=== PATIENT | female | born 1980 | race Caucasian/White ===

== ENCOUNTER 2017-12-04 15:12 | Emergency (ER) | payer MEDICAID ==
[2017-12-04] MEDS: DIPHENHYDRAMINE 50 MG INJ IM (18:38)
[2017-12-04] MEDS: KETOROLAC 60 MG INJ IM (18:38)
[2017-12-04] MEDS: PROCHLORPERAZINE 10 MG TAB PO (18:41)
== END 2017-12-04 20:17 | disposition home or self-care (01) ==
LOC: FTE 15:12
DX: R51 Headache (principal)
CPT/HCPCS: 96372; 99284-25

== ENCOUNTER 2017-12-09 17:30 | Emergency (ER) | payer MEDICAID ==
[2017-12-09] MEDS: ONDANSETRON (ODT) 4 MG TAB ODT (20:54)
[2017-12-09] MEDS: morphine 2 MG INJ IM (20:54)
[2017-12-09 21:15] LABS: ADD MAN DIFF? NO
[2017-12-09 21:18] LABS: WHITE BLOOD COUNT 7.2 10^3/ul (4.8-10.8)
[2017-12-09 21:18] LABS: BASOPHIL # 0.1 10^3/ul (0.0-0.1); BASOPHILS % 0.7 % (0.0-2.0); EOSINOPHILS # 0.7 10^3/ul (0.0-0.5); HEMATOCRIT 38.5 % (37.0-47.0); HEMOGLOBIN 13.1 g/dl (12.0-16.0); LYMPHOCYTES % 27.4 % (15.0-51.0); MEAN CORPUSCULAR HEMOGLOBIN 31.1 pg (29.0-33.0); MEAN CORPUSCULAR VOLUME 91.4 fl (82.0-101.0); MEAN PLATELET VOLUME 11.4 fl (7.4-10.4); MONOCYTE # 0.5 10^3/ul (0.3-0.9); MONOCYTES % 6.5 % (0.0-11.0); NEUTROPHIL # 3.9 10^3/ul (1.6-7.5); NEUTROPHILS % 54.8 % (39.0-77.0); PLATELET COUNT 272 10^3/UL (140-415); RED BLOOD COUNT 4.21 10^6/ul (4.20-5.40); RED CELL DISTRIBUTION WIDTH 12.2 % (11.5-14.5)
[2017-12-09 21:38] LABS: ANION GAP 12 (8-16); BLOOD UREA NITROGEN 16 mg/dl (7-20); CALCIUM 9.1 mg/dl (8.4-10.2); CARBON DIOXIDE 26 mmol/L (21-31); CHLORIDE 106 mmol/L (97-110); CREATININE 0.69 mg/dl (0.44-1.00); GLUCOSE 102 mg/dl (70-220); SODIUM 140 mmol/L (135-144)
== END 2017-12-09 23:25 | disposition home or self-care (01) ==
LOC: FTE 23:25
DX: G44.209 Tension-type headache, unspecified, not intractable (principal); F43.0 Acute stress reaction; Z79.82 Long term (current) use of aspirin
CPT/HCPCS: 70450; 80048; 85025; 96372; 99285-25

== ENCOUNTER 2018-10-05 18:33 | Emergency (ER) | payer OTHER, MEDICAID ==
[2018-10-05] MEDS: SOD CHLORIDE 0.9% 1,000 ML IV (21:26)
[2018-10-05] MEDS: DIPHENHYDRAMINE 50 MG INJ IV (21:26)
[2018-10-05] MEDS: KETOROLAC 30 MG INJ IV (21:26)
[2018-10-05] MEDS: METOCLOPRAMIDE 10 MG INJ IV (21:26)
[2018-10-05 21:28] LABS: URINE BLOOD (Dip) POC Trace-intact (NEGATIVE); URINE GLUCOSE (Dip) POC Negative (NEGATIVE); URINE KETONES (Dip) POC Negative (NEGATIVE); URINE LEUKOCYTE EST (Dip) POC Negative (NEGATIVE); URINE NITRITE (Dip) POC Negative (NEGATIVE); URINE TOTAL PROTEIN POC Negative (NEGATIVE)
[2018-10-05 21:40] LABS: ADD MAN DIFF? NO
[2018-10-05 21:41] LABS: WHITE BLOOD COUNT 7.1 10^3/ul (4.8-10.8)
[2018-10-05 21:41] LABS: BASOPHIL # 0.1 10^3/ul (0.0-0.1); BASOPHILS % 0.7 % (0.0-2.0); EOSINOPHILS # 0.2 10^3/ul (0.0-0.5); EOSINOPHILS % 2.9 % (0.0-7.0); HEMATOCRIT 37.7 % (37.0-47.0); HEMOGLOBIN 12.7 g/dl (12.0-16.0); LYMPHOCYTES % 27.6 % (15.0-51.0); MEAN CORPUSCULAR HEMOGLOBIN 30.9 pg (29.0-33.0); MEAN CORPUSCULAR HGB CONC 33.7 g/dl (32.0-37.0); MEAN CORPUSCULAR VOLUME 91.7 fl (82.0-101.0); MEAN PLATELET VOLUME 11.1 fl (7.4-10.4); MONOCYTE # 0.5 10^3/ul (0.3-0.9); MONOCYTES % 6.9 % (0.0-11.0); NEUTROPHIL # 4.4 10^3/ul (1.6-7.5); NEUTROPHILS % 61.6 % (39.0-77.0); PLATELET COUNT 263 10^3/UL (140-415); RED BLOOD COUNT 4.11 10^6/ul (4.20-5.40); RED CELL DISTRIBUTION WIDTH 12.6 % (11.5-14.5)
[2018-10-05 22:00] LABS: ANION GAP 9 (5-13); BLOOD UREA NITROGEN 12 mg/dl (7-20); CALCIUM 9.3 mg/dl (8.4-10.2); CARBON DIOXIDE 28 mmol/L (21-31); CHLORIDE 102 mmol/L (97-110); CREATININE 0.59 mg/dl (0.44-1.00); Estimated GFR > 60 mL/min (>60); GLUCOSE 93 mg/dl (70-220); POTASSIUM 3.7 mmol/L (3.5-5.1); SODIUM 139 mmol/L (135-144)
[2018-10-05 22:06] LABS: INR 0.89; PARTIAL THROMBOPLASTIN TIME 26.9 Sec (23.0-35.0); PROTIME 12.1 Sec (11.9-14.9); PT RATIO 0.9
[2018-10-10 00:07] LABS: URINE BLOOD (Dip) POC Trace-intact (NEGATIVE); URINE GLUCOSE (Dip) POC Negative (NEGATIVE); URINE KETONES (Dip) POC Negative (NEGATIVE); URINE LEUKOCYTE EST (Dip) POC Negative (NEGATIVE); URINE NITRITE (Dip) POC Negative (NEGATIVE); URINE TOTAL PROTEIN POC Negative (NEGATIVE)
== END 2018-10-05 22:52 | disposition home or self-care (01) ==
LOC: FTE 18:33
DX: R51 Headache (principal)
CPT/HCPCS: 36415; 80048; 81003; 85025; 85610; 85730; 96361; 96374; 96375; 99284-25